=== PATIENT | female | born 1975 | race Caucasian/White ===

== ENCOUNTER 2020-05-21 07:30 | Outpatient (CLI) | payer OTHER, SELFPAY ==
--- NOTE | ~2020-05-21 | MMUS_ITS ---
EXAMINATION: MM diagnostic sawyer BI w antonio, US breast BI complete HISTORY: Breast tenderness. TECHNIQUE: Additional 3-D tomosynthesis images of the breasts were performed and synthetic 2-D images were generated. CAD analysis was submitted and interpreted. High resolution bilateral complete breas t ultrasound was performed. COMPARISON: Comparison to multiple prior studies sequentially, with oldest reviewed study dated 09/07. BREAST PARENCHYMAL COMPOSITION: The breasts are heterogenously dense, which may obscure small masses. FINDINGS: MAMMOGRAPHIC FINDINGS: There are no developing punctate clustered calcifications in the central aspect of the right breast w hich have a symmetric appearance and layer on the left medial lateral view, most likely benign. There are no suspicious masses or architectural distortion. ULTRASOUND: Right breast ultrasound: At 7:00, 3 cm from the nipple, there is a cluster of microcysts measuring up to 6 mm. At 8:00, 4 cm f rom the nipple, there is a cluster of microcysts measuring up to 9 mm. No suspicious solid masses to suggest malignancy. Left breast ultrasound: At 2:00, 4 cm from the nipple there is an oval hypoechoic mass measuring 1.5 x 1.0 x 0.6 cm without i nternal vascularity. There is mixed posterior attenuation. IMPRESSION: 1. Lobulated 1.5 cm left breast mass at 2:00, 4 cm from the nipple with mixed posterior attenuation. Ultrasound-guided biopsy recommended. 2. Probable benign bilateral breast calcifications. Six-month follow-up diagnostic bilateral mammogra m recommended. BI-RADS category 4, suspicious findings. Reviewed, dictated and finalized at location A. [employer] IMPRESSION: 1. Lobulated 1.5 cm left breast mass at 2:00, 4 cm from the nipple with mixed p osterior attenuation. Ultrasound-guided biopsy recommended. 2. Probable benign bilateral breast calcifications. Six-month follow-up diagnos tic bilateral mammogram recommended. BI-RADS category 4, suspicious findings.
== END 2020-05-21 07:31 ==
PROVIDERS: Visit Provider Obstetrics & Gynecology
DX: N64.4 Mastodynia (principal); R92.8 Other abnormal and inconclusive findings on diagnostic imaging of breast
CPT/HCPCS: 76641; 77062; 77066; G0279

== ENCOUNTER 2020-05-27 10:02 | Emergency (ER) | payer OTHER, SELFPAY ==
--- NOTE | ~2020-05-27 | XR_ITS ---
EXAMINATION: XR wrist LT 2V DATE: 05/27/2020 10:26 INDICATION: Left wrist pain post injury TECHNIQUE: Posteroanterior, ulnar deviation, oblique, and lateral views of the left wrist were obtain ed. COMPARISON: none FINDINGS: Alignment is normal. No fracture. Joint spaces are normal. Soft tissues are unremarkable. IMPRESSION: 1. Negative left wrist radiographs. Reviewed, dictated and finalized at location A. [employer] SET UP OPERATOR
[2020-05-27 10:12] VITALS: BP 134/96; PULSE 80; RESP 18; TEMP 37.1; O2SAT 99
--- NOTE | 2020-05-27 10:37 | ED.UPPEXIN ---
HPI - Extremity Injury (Upper) General Chief Complaint: Extremity Injury, Upper Stated Complaint: lt wrist Time Seen by Provider: 05/27/20 10:16 Source: patient and RN notes reviewed Mode of arrival: ambulatory Limitations: no limitations History of Present Illness HPI narrative: Patient presents today with a left wrist injury. She was getting wet blankets out of her washing machine and struck her wrist on the lip of the washing machine, causing significant pain. Denies numbness or tingling in the arm or hand. Currently rates her pain 6/10, which increases with movement or pressure to the area. She has been using ice and taking Tylenol without relief. MD complaint: injury to: left and wrist Related Data Home Medications Medication Instructions Recorded Confirmed atomoxetine PO 05/27/20 Allergies Allergy/AdvReac Type Severity Reaction Status Date / Time codeine Allergy Unknown Vomiting Verified 05/27/20 10:20 minocycline Allergy Unknown Muscle Pain Verified 05/27/20 10:20 Review of Systems Review of Systems: Narrative: CONSTITUTIONAL: Denies body aches, fever, chills, or sweats. EYES: Denies visual changes, redness, or discharge. ENT: Denies rhinorrhea, congestion, sore throat, or otalgia. CARDIOVASCULAR: Denies chest pain, palpitations, or edema. RESPIRATORY: Denies cough or dyspnea. GASTROINTESTINAL: Denies abdominal pain, nausea, vomiting, or diarrhea. GENITOURINARY: Denies dysuria or hematuria. SKIN: Denies rash, itching, or wounds. MUSCULOSKELETAL: Denies back pain, or myalgia. + Left wrist injury NEUROLOGIC: Denies headache, numbness, tingling, or weakness. PSYCH: Denies depression or anxiety. [facility] Past Medical History Medical History (Updated 05/27/20 @ 10:43 by Ayla Frias, [employer]ERC[employer], ) Delivery with history of History of hypertension History of sleep apnea Migraines Surgical History Surgical History (Updated 05/27/20 @ 10:38 by Ayla Frias, [facility], ) History of bariatric surgery Family History Family History (Updated 09/08/16 @ 08:54 by DOCTOR UNKNOWN) Father Family history of diabetes mellitus in first degree relative Family history of coronary artery disease Family history of heart disease in male family member before age 55 Family history of premature coronary heart disease Diabetes mellitus Mother Family history of coronary artery disease Family history of mental disorder Hypertension Family history of malignant neoplasm of breast in first degree relative Sibling Family history of obesity Family history of migraine headaches Hypertension Other Family history of Alzheimer's disease Family history of osteoarthritis Social History Social History Smoking status: Never smoker Second hand tobacco smoke exposure: No Alcohol intake: current Comments At time of signature, I have reviewed and agree with nursing past medical, surgical, social and family history unless otherwise noted. Please see nursing chart for further information. There is no relevant family history pertinent to the presenting complaint Exam Narrative: Exam Narrative: GENERAL: Well-appearing, well-nourished, and in no acute distress. HEAD: Normocephalic, atraumatic. EYES: EOMI. No redness or drainage. Conjunctivae normal. ENT: Mucous membranes pink and moist. NECK: Normal AROM. CHEST: No respiratory distress. EXTREMITIES: Left wrist: Tenderness and mild edema with faint ecchymosis to the distal ulna. Distal sensation intact. Capillary refill normal. Radial pulse normal. No tenderness to the hand or fingers. No tenderness to the distal radius. Full range of motion of all fingers without pain. Flexion and extension of the wrist is limited due to pain. Pronation and supination is almost full, but slightly limited due to pain. SKIN: Warm, dry, no rash. Capillary refill normal. Normal skin turgor. NEURO: No focal deficits. Alert and oriented x3. Gait steady. PSY
== END 2020-05-27 10:55 | disposition home or self-care (01) ==
PROVIDERS: Emergency Provider Nurse Practitioner
DX: S60.212A Contusion of left wrist, initial encounter (principal); W22.8XXA Striking against or struck by other objects, initial encounter; I10 Essential (primary) hypertension; G47.30 Sleep apnea, unspecified
CPT/HCPCS: 73100; 99213; G0463

== ENCOUNTER 2021-06-21 15:51 | Outpatient (CLI) | payer OTHER, SELFPAY ==
[2021-06-21 17:12] LABS: HIV 1/2 Ab P24 Ag Result Negative (Negative)
[2021-06-26 05:27] LABS: HIV 1 RNA PCR Not Detected Copies/mL; HIV 1 RNA PCR Not Detected Log cps/mL
== END 2021-06-21 15:52 | disposition home or self-care (01) ==
LOC: ANHLAB 15:57
PROVIDERS: PCP Family Medicine; Visit Provider Obstetrics & Gynecology Gynecology
DX: R79.9 Abnormal finding of blood chemistry, unspecified (principal)
CPT/HCPCS: 36415; 86703; 87536; G0432

== ENCOUNTER 2021-07-02 12:35 | Outpatient (CLI) | payer OTHER, SELFPAY ==
[2021-07-08 11:43] LABS: Reference Lab Test Result NOT DETECTED
== END 2021-07-02 12:36 | disposition home or self-care (01) ==
LOC: ANHLAB 12:39
PROVIDERS: PCP Family Medicine; Visit Provider Obstetrics & Gynecology Gynecology
DX: R79.9 Abnormal finding of blood chemistry, unspecified (principal)
CPT/HCPCS: 36415

== ENCOUNTER 2021-08-07 08:59 | Outpatient (CLI) | payer OTHER, SELFPAY ==
[2021-08-07 09:24] LABS: Basophils Percent Auto 0.6 % (0.2-1.2); Eosinophils Absolute Auto 0.2 K/mm3 (0-0.3); Eosinophils Percent Auto 4.8 % (0-4.4); Hematocrit 38.9 % (37.0-47.0); Hemoglobin 12.7 g/dL (12.0-15.0); Immature Granulocyte Absolute 0.01 K/mm3 (0.00-0.031); Immature Granulocyte Percent A 0.3 % (0-0.5); Lymphocytes Absolute Auto 1.24 K/mm3 (0.9-3.2); Lymphocytes Percent Auto 34.9 % (18.3-44.2); Mean Corpuscular HGB Conc 32.6 g/dl (32-36); Mean Corpuscular Hemoglobin 29.9 pg (26-34); Mean Corpuscular Volume 91.5 fl (80-100); Mean Platelet Volume 9.2 fl (7.4-10.4); Monocytes Absolute Auto 0.2 K/mm3 (0.1-0.6); Monocytes Percent Auto 5.6 % (2.6-8.5); Neutrophils Absolute Auto 1.9 K/mm3 (1.3-6.7); Neutrophils Percent Auto 53.8 % (45.5-73.1); Platelet Count Result 197 k/mm3 (150-375); Red Blood Count 4.25 M/mm3 (4.2-5.4); White Blood Count 3.6 K/mm3 (4.5-10.0)
[2021-08-07 10:18] LABS: Hemoglobin A1C 4.9 % (<5.7)
[2021-08-07 10:21] LABS: Alanine Aminotransferase 12 U/L (4-35); Alkaline Phosphatase 65 U/L (38-126); Anion Gap 6 mmol/L (8-16); Aspartate Amino Transferase 24 U/L (14-36); Bilirubin,Total 1.1 mg/dL (0.2-1.3); Blood Urea Nitrogen 14 mg/dL (7-17); Calcium 8.7 mg/dL (8.4-10.2); Carbon Dioxide 23 mmol/L (22-30); Chloride 108 mmol/L (98-107); Cholesterol 192 mg/dL (0-200); Estimated Glomerular Filt Rate > 60; Glucose 87 mg/dL (65-110); HDL Direct 38 mg/dL; Potassium 4.1 mmol/L (3.4-5.0); Sodium 137 mmol/L (137-145); Triglycerides 65 mg/dL (<150)
[2021-08-07 10:25] LABS: Vitamin D 25 Hydroxy 42.4 ng/mL
[2021-08-07 10:34] LABS: LDL Cholesterol Direct 116 mg/dL
[2021-08-07 11:23] LABS: Folic Acid 5.4 ng/mL (2.76->20)
== END 2021-08-07 09:00 | disposition home or self-care (01) ==
LOC: ANHLAB 09:02
PROVIDERS: PCP Family Medicine; Visit Provider Physician Assistant
DX: R42 Dizziness and giddiness (principal)
CPT/HCPCS: 36415; 80053; 80061; 82306; 82607; 82746; 83036; 84443; 85025

== ENCOUNTER 2021-12-23 14:10 | Outpatient (CLI) | payer OTHER, SELFPAY ==
--- NOTE | ~2021-12-23 | XR_ITS ---
XR foot RT min 3V DATE: 12/23/2021 14:39 INDICATION: Pain across the dorsum of the foot. No injury. TECHNIQUE: 4 views COMPARISON: None FINDINGS: There is slight posterior calcaneal enthesopathy. No fracture, dislocation, periosteal reac tion or bone destruction, joint space narrowing, erosive change or other significant abnormality is n oted. IMPRESSION: Slight posterior calcaneal enthesopathy Reviewed, dictated and finalized at location B.
== END 2021-12-23 14:11 | disposition home or self-care (01) ==
LOC: ANHIMG 14:15
PROVIDERS: PCP Physician Assistant; Visit Provider Physician Assistant
DX: M77.31 Calcaneal spur, right foot (principal)
CPT/HCPCS: 73630

== ENCOUNTER 2022-05-15 14:06 | Outpatient (CLI) | payer OTHER, SELFPAY ==
--- NOTE | ~2022-05-15 | XR_ITS ---
EXAMINATION: XR lumbar spine 2-3V DATE: 05/15/2022 14:26 INDICATION: Low back strain. TECHNIQUE: 3 views of lumbar spine were obtained. COMPARISON: None. FINDINGS: Bone alignment is normal. Vertebral body heights are normal. There is mildly decreased disc height at L5-S1. The facet joints are unremarkable. There are staple lines in the abdomen. Surgical clips in the right upper quadrant are likely from cholecystectomy. IMPRESSION: 1. Mild lower lumbar spondylosis. Reviewed, dictated and finalized at location A. ROLLER
== END 2022-05-15 14:07 | disposition home or self-care (01) ==
LOC: ANHIMG 14:08
PROVIDERS: PCP Physician Assistant; Visit Provider Physician Assistant
DX: S39.012A Strain of muscle, fascia and tendon of lower back, initial encounter (principal); X58.XXXA Exposure to other specified factors, initial encounter; M47.896 Other spondylosis, lumbar region
CPT/HCPCS: 72100